=== PATIENT | male | born 1955 | race Caucasian/White ===

== ENCOUNTER 2021-06-27 05:47 | Inpatient (IN) ==
[2021-06-21 12:44] LABS: Basophils % 0.2 % (0.0-0.8); Eosinophils # 0.1 10*3/uL (0.0-0.87); Eosinophils % 0.5 % (0.00-10.9); Hematocrit 39.1 VOL% (42.0-52.0); Immature Granulocytes % 0.4 %; Immature Granulocytes Absolute 0.04 #; Lymphocytes # 1.8 10*3/uL (1.4-4.0); Lymphocytes % 19.2 % (21.2-54.2); Mean Corpuscular HGB Conc 33.2 GM/DL (32-36); Mean Platelet Volume 11.1 FL (9.6-12.0); Monocytes % 7.3 % (1.7-12.7); Neutrophils % 72.4 % (38.7-73.9); Platelet Count 170 T/CUMM (130-400); Red Blood Count 3.91 MC/CUMM (3.8-5.5); Red Cell Distribution Width 16.5 % (9.3-17.3); White Blood Count 9.2 T/CUMM (4-12)
[2021-06-21 13:03] LABS: Albumin 3.7 G/DL (3.4-5.0); Bilirubin,Total 2.1 MG/DL (0.20-1.00); Calcium 9.2 MG/DL (8.5-10.1); Total Protein 6.6 G/DL (6.4-8.2)
[2021-06-27] MEDS ORDERED: GABAPENTIN 400 MG CAPSULE ONE (05:51)
[2021-06-27] MEDS ORDERED: ACETAMINOPHEN 500 MG TABLET ONE (05:51)
[2021-06-27] MEDS ORDERED: FAMOTIDINE 20 MG TABLET ONE (05:51)
[2021-06-27] MEDS ORDERED: LACTATED RINGERS 1,000 ML IV SCH (06:00)
[2021-06-27] MEDS ORDERED: cefTRIAXone 1,000 MG in SODIUM CHLORIDE 0.9% 100 ML IV ONE (06:00)
[2021-06-27] MEDS ORDERED: SODIUM PHOSPHATE ENEMA 133 ML BOTTLE RECTAL ONE (06:08)
[2021-06-27] MEDS ORDERED: ROPIVACAINE 0.5% 30 ML VIAL ONE ×2 (06:40→10:31)
[2021-06-27] MEDS ORDERED: DEXAMETHASONE 4 MG/1 ML VIAL ONE ×2 (06:40→08:22)
[2021-06-27] MEDS: ALVIMOPAN 12 MG CAPSULE PO SCH ×2 (06:40→22:23)
[2021-06-27] MEDS ORDERED: MIDAZOLAM 2 MG/2 ML VIAL ONE (06:46)
[2021-06-27] MEDS ORDERED: fentaNYL 250 MCG/5 ML VIAL ONE (06:47)
[2021-06-27] MEDS ORDERED: FAMOTIDINE 20 MG TABLET PO ONE (07:26)
[2021-06-27] MEDS ORDERED: ACETAMINOPHEN 500 MG TABLET PO ONE (07:26)
[2021-06-27] MEDS ORDERED: GABAPENTIN 400 MG CAPSULE PO ONE (07:26)
[2021-06-27] MEDS ORDERED: PHENYLEPHRINE 10 MG/1 ML VIAL IV ONE (07:28)
[2021-06-27] MEDS ORDERED: GLYCOPYRROLATE 0.4 MG/2 ML VIAL ONE (08:22)
[2021-06-27] MEDS ORDERED: LACTATED RINGERS 1,000 ML IV ONE (08:22)
[2021-06-27] MEDS ORDERED: DESFLURANE 1 UNIT/15 MINUTE INH ONE ×3 (08:22→10:37)
[2021-06-27] MEDS ORDERED: ROCURONIUM 50 MG/5 ML VIAL IV ONE ×2 (08:22→08:36)
[2021-06-27] MEDS ORDERED: SODIUM CHLORIDE 0.9% 100 ML IV ONE (08:22)
[2021-06-27] MEDS ORDERED: LIDOCAINE 2% 5 ML VIAL ONE (08:22)
[2021-06-27] MEDS ORDERED: ONDANSETRON 4 MG/2 ML VIAL ONE (08:22)
[2021-06-27] MEDS ORDERED: propofoL 200 MG/20 ML VIAL IV ONE (08:22)
[2021-06-27 08:35] LABS: Bacteria,Urine Occasional /HPF (Few); Bilirubin,Urine Negative (Negative); Blood, Urine Small mg/dL (Negative); Calcium Oxalate Crystals,Urine Occasional /HPF (Few); Glucose,Urine (UA) Negative (Negative); Ketones,Urine Negative (Negative); Mucus,Urine Few /LPF (Occasional); Nitrite,Urine Negative (Negative); Protein,Urine 30 MG/DL; RBC,Urine 10 /HPF (0-4); Squamous Epithelial Cell,Urine Few /HPF (0-10); Urine Appearance Slightly Hazy (Clear); Urine Color Amber (Yellow); Urine Specific Gravity 1.014 (1.001-1.035)
[2021-06-27] MEDS ORDERED: SUGAMMADEX 200 MG/2 ML VIAL IV ONE (10:06)
[2021-06-27] MEDS ORDERED: HYDROmorphone 2 MG/1 ML VIAL ONE (10:25)
[2021-06-27] MEDS ORDERED: PROMETHAZINE 25 MG/1 ML VIAL IM PRN (10:40)
[2021-06-27] MEDS ORDERED: SIMETHICONE CHEW 125 MG TABLET PO PRN (10:40)
[2021-06-27] MEDS ORDERED: MAGNESIUM HYDROXIDE SUSP 30 ML UDCUP PO PRN (10:40)
[2021-06-27] MEDS ORDERED: ONDANSETRON 4 MG/2 ML VIAL IV PRN (10:40)
[2021-06-27] MEDS ORDERED: diphenhydrAMINE CAP 25 MG CAPSULE PO PRN (10:40)
[2021-06-27 11:34] LABS: Basophils % 0.1 % (0.0-0.8); Hematocrit 39.7 VOL% (42.0-52.0); Hemoglobin 12.9 GM/DL (14.0-18.0); Immature Granulocytes % 0.8 %; Immature Granulocytes Absolute 0.07 #; Lymphocytes # 0.7 10*3/uL (1.4-4.0); Lymphocytes % 7.4 % (21.2-54.2); Mean Corpuscular HGB Conc 32.5 GM/DL (32-36); Mean Corpuscular Volume 104.5 FL (87-102); Mean Platelet Volume 10.7 FL (9.6-12.0); Monocytes % 2.1 % (1.7-12.7); Neutrophils % 89.6 % (38.7-73.9); Platelet Count 115 T/CUMM (130-400); Red Cell Distribution Width 16.4 % (9.3-17.3)
[2021-06-27 12:22] LABS: Calcium 9.2 MG/DL (8.5-10.1); Potassium 4.4 MMOL/L (3.5-5.1)
[2021-06-27] MEDS ORDERED: COLCHICINE 0.6 MG CAPSULE PO PRN (12:22)
[2021-06-27 12:44] LABS: Anisocytosis 2+; Macrocytosis 1+; Platelet Estimate Adequate; Polychromasia Slight
[2021-06-27] MEDS: SODIUM CHLORIDE 0.9% 1,000 ML IV SCH ×2 (13:03→22:24)
[2021-06-27] MEDS: ACETAMINOPHEN 325 MG TABLET PO SCH ×2 (13:14→17:12)
[2021-06-27] MEDS: oxyCODONE/ACETAMINOPHEN 5-325 MG TABLET PO PRN (16:06)
[2021-06-27] MEDS ORDERED: hydrALAZINE 20 MG/1 ML VIAL IV PRN (16:20)
[2021-06-27] MEDS ORDERED: MELATONIN 3 MG TABLET PO PRN (16:21)
[2021-06-27] MEDS: HYDROmorphone 2 MG/1 ML VIAL IV PRN (18:06)
[2021-06-27] MEDS: TAMSULOSIN 0.4 MG CAPSULE PO SCH (22:23)
[2021-06-27] MEDS: FAMOTIDINE 20 MG TABLET PO SCH (22:23)
[2021-06-27] MEDS: DOCUSATE SODIUM 100 MG CAPSULE PO SCH (22:24)
[2021-06-28] MEDS: ACETAMINOPHEN 325 MG TABLET PO SCH ×5 (00:39→23:19)
[2021-06-28] MEDS: SODIUM CHLORIDE 0.9% 1,000 ML IV SCH (04:31)
[2021-06-28 05:49] LABS: Hematocrit 35.4 VOL% (42.0-52.0); Hemoglobin 11.9 GM/DL (14.0-18.0); Immature Granulocytes % 0.6 %; Immature Granulocytes Absolute 0.07 #; Lymphocytes # 0.6 10*3/uL (1.4-4.0); Lymphocytes % 5.3 % (21.2-54.2); Mean Corpuscular HGB Conc 33.6 GM/DL (32-36); Mean Corpuscular Volume 102.6 FL (87-102); Mean Platelet Volume 10.8 FL (9.6-12.0); Monocytes % 3.6 % (1.7-12.7); Neutrophils % 90.5 % (38.7-73.9); Platelet Count 133 T/CUMM (130-400); Red Blood Count 3.45 MC/CUMM (3.8-5.5); Red Cell Distribution Width 16.1 % (9.3-17.3); White Blood Count 10.9 T/CUMM (4-12)
[2021-06-28 06:01] LABS: Calcium 8.9 MG/DL (8.5-10.1); Osmolality,Calculated 274.8 MOS/KG (273-304); Potassium 4.7 MMOL/L (3.5-5.1)
[2021-06-28] MEDS: HYDROmorphone 2 MG/1 ML VIAL IV PRN ×3 (06:38→20:51)
[2021-06-28] MEDS: METOPROLOL SUCCINATE XL 100 MG TABLET PO SCH (09:37)
[2021-06-28] MEDS: TAMSULOSIN 0.4 MG CAPSULE PO SCH ×2 (09:37→20:51)
[2021-06-28] MEDS: allopurinoL 300 MG TABLET PO SCH (09:37)
[2021-06-28] MEDS: DOCUSATE SODIUM 100 MG CAPSULE PO SCH ×2 (09:37→20:51)
[2021-06-28] MEDS: ALVIMOPAN 12 MG CAPSULE PO SCH ×2 (09:37→20:51)
[2021-06-28] MEDS: FAMOTIDINE 20 MG TABLET PO SCH ×2 (09:37→20:51)
[2021-06-29 05:35] LABS: Hematocrit 34.4 VOL% (42.0-52.0); Hemoglobin 11.4 GM/DL (14.0-18.0); Immature Granulocytes % 0.7 %; Immature Granulocytes Absolute 0.08 #; Lymphocytes # 1.1 10*3/uL (1.4-4.0); Lymphocytes % 9.3 % (21.2-54.2); Mean Corpuscular HGB Conc 33.1 GM/DL (32-36); Mean Corpuscular Volume 103.9 FL (87-102); Mean Platelet Volume 11.2 FL (9.6-12.0); Monocytes % 6.7 % (1.7-12.7); Neutrophils % 83.3 % (38.7-73.9); Platelet Count 136 T/CUMM (130-400); Red Blood Count 3.31 MC/CUMM (3.8-5.5); Red Cell Distribution Width 16.2 % (9.3-17.3); White Blood Count 11.6 T/CUMM (4-12)
[2021-06-29 05:51] LABS: Calcium 9.2 MG/DL (8.5-10.1); Osmolality,Calculated 271.8 MOS/KG (273-304); Potassium 4.7 MMOL/L (3.5-5.1)
[2021-06-29] MEDS: ACETAMINOPHEN 325 MG TABLET PO SCH ×4 (05:59→21:05)
[2021-06-29] MEDS ORDERED: BISACODYL 10 MG SUPP RECTAL ONE (07:33)
[2021-06-29] MEDS: FAMOTIDINE 20 MG TABLET PO SCH ×2 (09:57→21:06)
[2021-06-29] MEDS: TAMSULOSIN 0.4 MG CAPSULE PO SCH ×2 (09:57→21:06)
[2021-06-29] MEDS: oxyCODONE/ACETAMINOPHEN 5-325 MG TABLET PO PRN ×2 (09:57→17:20)
[2021-06-29] MEDS: METOPROLOL SUCCINATE XL 100 MG TABLET PO SCH (09:57)
[2021-06-29] MEDS: allopurinoL 300 MG TABLET PO SCH (09:57)
[2021-06-29] MEDS: ALVIMOPAN 12 MG CAPSULE PO SCH ×2 (09:58→21:06)
[2021-06-29] MEDS: DOCUSATE SODIUM 100 MG CAPSULE PO SCH ×2 (09:58→21:06)
[2021-06-29] MEDS: HYDROmorphone 2 MG/1 ML VIAL IV PRN ×2 (11:48→21:05)
[2021-06-30] MEDS: ACETAMINOPHEN 325 MG TABLET PO SCH (05:07)
[2021-06-30 05:35] LABS: Calcium 8.7 MG/DL (8.5-10.1); Osmolality,Calculated 270.8 MOS/KG (273-304); Potassium 3.9 MMOL/L (3.5-5.1)
[2021-06-30 05:47] LABS: Basophils % 0.1 % (0.0-0.8); Eosinophils % 0.6 % (0.00-10.9); Hematocrit 32.6 VOL% (42.0-52.0); Hemoglobin 10.8 GM/DL (14.0-18.0); Immature Granulocytes % 0.6 %; Immature Granulocytes Absolute 0.04 #; Lymphocytes # 1.5 10*3/uL (1.4-4.0); Lymphocytes % 21.4 % (21.2-54.2); Mean Corpuscular HGB Conc 33.1 GM/DL (32-36); Mean Corpuscular Volume 102.8 FL (87-102); Mean Platelet Volume 10.9 FL (9.6-12.0); Monocytes % 7.3 % (1.7-12.7); Red Blood Count 3.17 MC/CUMM (3.8-5.5)
[2021-06-30 06:01] LABS: Platelet Count 103 T/CUMM (130-400)
[2021-06-30 06:08] LABS: Anisocytosis 2+; Macrocytosis 1+; Platelet Estimate Adequate
[2021-06-30 07:45] VITALS: BP 102/64
[2021-06-30] MEDS: TAMSULOSIN 0.4 MG CAPSULE PO SCH (08:16)
[2021-06-30] MEDS: METOPROLOL SUCCINATE XL 100 MG TABLET PO SCH (08:16)
[2021-06-30] MEDS: DOCUSATE SODIUM 100 MG CAPSULE PO SCH (08:17)
[2021-06-30] MEDS: ALVIMOPAN 12 MG CAPSULE PO SCH (08:17)
[2021-06-30] MEDS: FAMOTIDINE 20 MG TABLET PO SCH (08:17)
[2021-06-30] MEDS: allopurinoL 300 MG TABLET PO SCH (08:17)
[2021-06-30] MEDS: oxyCODONE/ACETAMINOPHEN 5-325 MG TABLET PO PRN (08:21)
[2021-06-30] MEDS ORDERED: INFLUENZA VIRUS VACCINE 0.5 ML SYRINGE IM ONE (10:53)
== END 2021-06-30 11:00 | disposition home or self-care (01) | DRG 657 ==
LOC: N.OR 05:47 → N.SDSINP 05:49 → N.2W 12:18
PROVIDERS: ADMIT Surgery; ATTEND Surgery

== ENCOUNTER 2021-08-19 08:30 | Inpatient (IN) ==
[2021-08-19 12:43] LABS: Basophils % 0.2 % (0.0-0.8); Eosinophils # 0.1 10*3/uL (0.0-0.87); Eosinophils % 0.6 % (0.00-10.9); Hematocrit 44.1 VOL% (42.0-52.0); Hemoglobin 14.9 GM/DL (14.0-18.0); Immature Granulocytes % 0.9 %; Immature Granulocytes Absolute 0.07 #; Lymphocytes # 1.3 10*3/uL (1.4-4.0); Lymphocytes % 15.7 % (21.2-54.2); Mean Corpuscular HGB Conc 33.8 GM/DL (32-36); Mean Corpuscular Volume 101.1 FL (87-102); Mean Platelet Volume 11.8 FL (9.6-12.0); Monocytes % 7.7 % (1.7-12.7); Neutrophils % 74.9 % (38.7-73.9); Platelet Count 101 T/CUMM (130-400); Red Blood Count 4.36 MC/CUMM (3.8-5.5); Red Cell Distribution Width 13.9 % (9.3-17.3)
[2021-08-19 13:03] LABS: Albumin 3.3 G/DL (3.4-5.0); Bilirubin,Total 1.2 MG/DL (0.20-1.00); Calcium 10.1 MG/DL (8.5-10.1); Osmolality,Calculated 267.2 MOS/KG (273-304); Potassium 3.5 MMOL/L (3.5-5.1); Total Protein 6.9 G/DL (6.4-8.2)
[2021-08-19] MEDS ORDERED: SODIUM CHLORIDE 0.9% 500 ML IV STA (16:38)
[2021-08-19] MEDS ORDERED: ONDANSETRON 4 MG/2 ML VIAL IV STA (16:39)
[2021-08-19 18:11] LABS: Bacteria,Urine Moderate /HPF (Few); Bilirubin,Urine Negative (Negative); Blood, Urine Negative (Negative); Glucose,Urine (UA) Negative (Negative); Ketones,Urine 5 mg/dL (Negative); Mucus,Urine Many /LPF (Occasional); Nitrite,Urine Negative (Negative); Protein,Urine 100 MG/DL; Squamous Epithelial Cell,Urine Occasional /HPF (0-10); Urine Appearance CLOUDY (Clear); Urine Color Amber (Yellow); Urine Specific Gravity 1.027 (1.001-1.035)
[2021-08-19 18:12] LABS: INR 1.1; PT Patient Result 12.7 SECS (10.5-12.0); Partial Thromboplastin Time 27.9 SECS (23.8-32.1)
[2021-08-19] MEDS ORDERED: cefTRIAXone 1,000 MG in SODIUM CHLORIDE 0.9% 100 ML IV STA (18:25)
[2021-08-19] MEDS ORDERED: CIPROFLOXACIN INJ 400 MG/200 ML PREMIX IV STA (18:28)
[2021-08-20] MEDS ORDERED: ACETAMINOPHEN 325 MG TABLET PO PRN (00:33)
[2021-08-20] MEDS: LACTATED RINGERS 1,000 ML IV SCH ×2 (01:05→10:41)
[2021-08-20 04:41] LABS: Basophils % 0.2 % (0.0-0.8); Eosinophils % 0.8 % (0.00-10.9); Hematocrit 35.4 VOL% (42.0-52.0); Immature Granulocytes % 0.4 %; Immature Granulocytes Absolute 0.02 #; Lymphocytes # 1.2 10*3/uL (1.4-4.0); Lymphocytes % 24.5 % (21.2-54.2); Mean Corpuscular HGB Conc 33.9 GM/DL (32-36); Mean Corpuscular Volume 100.6 FL (87-102); Mean Platelet Volume 11.2 FL (9.6-12.0); Monocytes % 7.8 % (1.7-12.7); Neutrophils % 66.3 % (38.7-73.9); Platelet Count 64 T/CUMM (130-400); Red Blood Count 3.52 MC/CUMM (3.8-5.5); Red Cell Distribution Width 13.9 % (9.3-17.3)
[2021-08-20 04:56] LABS: Albumin 2.6 G/DL (3.4-5.0); Bilirubin,Total 0.9 MG/DL (0.20-1.00); Osmolality,Calculated 270.8 MOS/KG (273-304); Potassium 3.1 MMOL/L (3.5-5.1); Total Protein 5.5 G/DL (6.4-8.2)
[2021-08-20 07:38] LABS: Platelet Estimate Decreased
[2021-08-20] MEDS: PANTOPRAZOLE 40 MG TABLET PO SCH (08:41)
[2021-08-20] MEDS: CIPROFLOXACIN INJ 400 MG/200 ML PREMIX IV SCH (08:41)
[2021-08-20] MEDS ORDERED: PNEUMOCOCCAL VACCINE (13 VALENT) 0.5 ML SYRINGE IM ONE (21:13)
[2021-08-21] MEDS: CIPROFLOXACIN INJ 400 MG/200 ML PREMIX IV SCH ×2 (01:12→14:49)
[2021-08-21] MEDS: LACTATED RINGERS 1,000 ML IV SCH ×4 (03:20→17:24)
[2021-08-21 04:53] LABS: Basophils % 0.3 % (0.0-0.8); Eosinophils % 0.8 % (0.00-10.9); Hematocrit 34.6 VOL% (42.0-52.0); Hemoglobin 11.8 GM/DL (14.0-18.0); Immature Granulocytes % 0.8 %; Immature Granulocytes Absolute 0.03 #; Lymphocytes % 26.3 % (21.2-54.2); Mean Corpuscular HGB Conc 34.1 GM/DL (32-36); Mean Platelet Volume 10.5 FL (9.6-12.0); Monocytes % 8.1 % (1.7-12.7); Neutrophils % 63.7 % (38.7-73.9); Platelet Count 52 T/CUMM (130-400); Red Blood Count 3.46 MC/CUMM (3.8-5.5)
[2021-08-21 05:12] LABS: Platelet Estimate Decreased
[2021-08-21 05:19] LABS: Albumin 2.4 G/DL (3.4-5.0); Bilirubin,Total 1.5 MG/DL (0.20-1.00); Calcium 8.6 MG/DL (8.5-10.1); Osmolality,Calculated 273.5 MOS/KG (273-304); Potassium 3.1 MMOL/L (3.5-5.1); Total Protein 5.3 G/DL (6.4-8.2)
[2021-08-21] MEDS ORDERED: INDOCYANINE GREEN 25 MG VIAL IV ONE ×2 (06:00→08:30)
[2021-08-21] MEDS: POTASSIUM CHLORIDE RIDER 10 MEQ/100 ML PREMIX IV SCH ×2 (08:07→11:45)
[2021-08-21] MEDS ORDERED: propofoL 200 MG/20 ML VIAL IV ONE (10:28)
[2021-08-21] MEDS ORDERED: ETOMIDATE 40 MG/20 ML VIAL IV ONE (10:28)
[2021-08-21] MEDS ORDERED: SEVOFLURANE 1 UNIT/15 MINUTE INH ONE ×2 (10:28→12:30)
[2021-08-21] MEDS ORDERED: ROCURONIUM 50 MG/5 ML VIAL IV ONE (10:28)
[2021-08-21] MEDS ORDERED: LIDOCAINE 2% 5 ML VIAL ONE (10:28)
[2021-08-21] MEDS ORDERED: fentaNYL 100 MCG/2 ML VIAL ONE (10:28)
[2021-08-21] MEDS ORDERED: LIDOCAINE 1%/EPI INJ 20 ML VIAL ONE (10:35)
[2021-08-21] MEDS ORDERED: BUPIVACAINE MPF 0.25% 30 ML VIAL ONE (10:35)
[2021-08-21] MEDS ORDERED: TISSUE ADHESIVE 1 EACH APPLICATOR TOP ONE (10:35)
[2021-08-21] MEDS: PANTOPRAZOLE 40 MG TABLET PO SCH ×2 (11:45→21:20)
[2021-08-21] MEDS ORDERED: SODIUM CHLORIDE 0.9% 100 ML IV ONE (11:51)
[2021-08-21] MEDS ORDERED: PHENYLEPHRINE 10 MG/1 ML VIAL IV ONE (11:51)
[2021-08-21] MEDS ORDERED: LACTATED RINGERS 1,000 ML IV ONE (11:51)
[2021-08-21] MEDS ORDERED: HEPARIN 5,000 UNIT/1 ML VIAL ONE (11:54)
[2021-08-21] MEDS ORDERED: GLYCOPYRROLATE 0.4 MG/2 ML VIAL ONE (12:27)
[2021-08-21] MEDS ORDERED: NEOSTIGMINE 10 MG/10 ML VIAL ONE (12:27)
[2021-08-21] MEDS: ENOXAPARIN 40 MG/0.4 ML SYRINGE SUBCUT SCH (14:55)
[2021-08-21] MEDS ORDERED: traMADol 50 MG TABLET PO PRN (15:47)
[2021-08-21] MEDS ORDERED: DIAZEPAM 5 MG TABLET PO PRN (15:56)
[2021-08-21] MEDS ORDERED: COLCHICINE 0.6 MG CAPSULE PO PRN (16:01)
[2021-08-21] MEDS: ONDANSETRON 4 MG/2 ML VIAL IV PRN (18:25)
[2021-08-21] MEDS: HYDROmorphone 2 MG/1 ML VIAL IV PRN (20:15)
[2021-08-21] MEDS: TAMSULOSIN 0.4 MG CAPSULE PO SCH (21:20)
[2021-08-22] MEDS: LACTATED RINGERS 1,000 ML IV SCH ×3 (01:09→15:44)
[2021-08-22] MEDS: CIPROFLOXACIN INJ 400 MG/200 ML PREMIX IV SCH ×2 (01:10→14:27)
[2021-08-22] MEDS: ONDANSETRON 4 MG/2 ML VIAL IV PRN ×3 (02:11→14:27)
[2021-08-22 07:03] LABS: Hematocrit 35.2 VOL% (42.0-52.0); Hemoglobin 11.8 GM/DL (14.0-18.0); Immature Granulocytes Absolute 0.06 #; Lymphocytes # 0.5 10*3/uL (1.4-4.0); Lymphocytes % 7.8 % (21.2-54.2); Mean Corpuscular HGB Conc 33.5 GM/DL (32-36); Mean Corpuscular Volume 99.7 FL (87-102); Mean Platelet Volume 11.6 FL (9.6-12.0); Monocytes % 4.2 % (1.7-12.7); Platelet Count 63 T/CUMM (130-400); Red Blood Count 3.53 MC/CUMM (3.8-5.5); Red Cell Distribution Width 14.1 % (9.3-17.3); White Blood Count 5.8 T/CUMM (4-12)
[2021-08-22 07:23] LABS: Platelet Estimate Decreased
[2021-08-22 07:32] LABS: Albumin 2.3 G/DL (3.4-5.0); Bilirubin,Total 0.9 MG/DL (0.20-1.00); Calcium 8.5 MG/DL (8.5-10.1); Osmolality,Calculated 274.5 MOS/KG (273-304); Potassium 3.8 MMOL/L (3.5-5.1); Total Protein 5.2 G/DL (6.4-8.2)
[2021-08-22] MEDS: ASPIRIN CHEW 81 MG TABLET PO SCH (09:04)
[2021-08-22] MEDS: CHOLECALCIFEROL 5,000 UNIT TABLET PO SCH (09:05)
[2021-08-22] MEDS: PANTOPRAZOLE 40 MG TABLET PO SCH ×2 (09:05→20:49)
[2021-08-22] MEDS: TAMSULOSIN 0.4 MG CAPSULE PO SCH ×2 (09:05→20:49)
[2021-08-22] MEDS: METOPROLOL SUCCINATE XL 100 MG TABLET PO SCH (09:05)
[2021-08-22] MEDS: HYDROmorphone 2 MG/1 ML VIAL IV PRN (09:35)
[2021-08-22] MEDS: [UNRECOGNIZED DRUG - OTHER] PO SCH (09:40)
[2021-08-22] MEDS: VIT C E ZN COPPR LUTEIN ZEAXAN PO SCH (09:40)
[2021-08-22] MEDS: ENOXAPARIN 40 MG/0.4 ML SYRINGE SUBCUT SCH (14:26)
[2021-08-22] MEDS: PROMETHAZINE 25 MG/1 ML VIAL IM PRN (19:47)
[2021-08-23] MEDS: CIPROFLOXACIN INJ 400 MG/200 ML PREMIX IV SCH ×2 (00:29→12:41)
[2021-08-23] MEDS: LACTATED RINGERS 1,000 ML IV SCH ×5 (00:40→22:29)
[2021-08-23] MEDS: PROMETHAZINE 25 MG/1 ML VIAL IM PRN (01:12)
[2021-08-23] MEDS: ASPIRIN CHEW 81 MG TABLET PO SCH (09:07)
[2021-08-23] MEDS: CHOLECALCIFEROL 5,000 UNIT TABLET PO SCH (09:07)
[2021-08-23] MEDS: TAMSULOSIN 0.4 MG CAPSULE PO SCH ×2 (09:07→20:34)
[2021-08-23] MEDS: PANTOPRAZOLE 40 MG TABLET PO SCH ×2 (09:07→20:33)
[2021-08-23] MEDS: METOPROLOL SUCCINATE XL 100 MG TABLET PO SCH (09:07)
[2021-08-23] MEDS: [UNRECOGNIZED DRUG - OTHER] PO SCH (09:36)
[2021-08-23] MEDS: VIT C E ZN COPPR LUTEIN ZEAXAN PO SCH (09:36)
[2021-08-23 12:13] LABS: Basophils % 0.3 % (0.0-0.8); Eosinophils % 0.3 % (0.00-10.9); Hematocrit 32.9 VOL% (42.0-52.0); Hemoglobin 10.9 GM/DL (14.0-18.0); Immature Granulocytes % 0.8 %; Immature Granulocytes Absolute 0.03 #; Lymphocytes # 0.9 10*3/uL (1.4-4.0); Lymphocytes % 22.1 % (21.2-54.2); Mean Corpuscular HGB Conc 33.1 GM/DL (32-36); Mean Corpuscular Volume 101.9 FL (87-102); Mean Platelet Volume 11.5 FL (9.6-12.0); Monocytes % 5.4 % (1.7-12.7); Neutrophils % 71.1 % (38.7-73.9); Platelet Count 54 T/CUMM (130-400); Red Blood Count 3.23 MC/CUMM (3.8-5.5); Red Cell Distribution Width 14.3 % (9.3-17.3); White Blood Count 3.9 T/CUMM (4-12)
[2021-08-23 12:36] LABS: Anisocytosis Slight; Macrocytosis Slight; Platelet Estimate Decreased
[2021-08-23 12:37] LABS: Albumin 2.2 G/DL (3.4-5.0); Bilirubin,Total 0.6 MG/DL (0.20-1.00); Calcium 8.6 MG/DL (8.5-10.1); Osmolality,Calculated 273.5 MOS/KG (273-304); Potassium 3.4 MMOL/L (3.5-5.1); Total Protein 4.8 G/DL (6.4-8.2)
[2021-08-23] MEDS: ENOXAPARIN 40 MG/0.4 ML SYRINGE SUBCUT SCH (12:42)
[2021-08-23] MEDS: HYDROmorphone 2 MG/1 ML VIAL IV PRN (14:27)
[2021-08-24] MEDS: LACTATED RINGERS 1,000 ML IV SCH ×2 (00:28→10:50)
[2021-08-24] MEDS: CIPROFLOXACIN INJ 400 MG/200 ML PREMIX IV SCH ×2 (02:13→14:54)
[2021-08-24 05:45] LABS: Basophils % 0.3 % (0.0-0.8); Eosinophils % 0.3 % (0.00-10.9); Hematocrit 32.3 VOL% (42.0-52.0); Hemoglobin 10.9 GM/DL (14.0-18.0); Immature Granulocytes % 1.3 %; Immature Granulocytes Absolute 0.04 #; Lymphocytes # 0.9 10*3/uL (1.4-4.0); Lymphocytes % 29.5 % (21.2-54.2); Mean Corpuscular HGB Conc 33.7 GM/DL (32-36); Mean Corpuscular Volume 102.5 FL (87-102); Monocytes % 6.7 % (1.7-12.7); Neutrophils % 61.9 % (38.7-73.9); Platelet Count 43 T/CUMM (130-400); Red Blood Count 3.15 MC/CUMM (3.8-5.5); Red Cell Distribution Width 14.4 % (9.3-17.3); White Blood Count 3.2 T/CUMM (4-12)
[2021-08-24 06:04] LABS: Hypochromia 1+; Microcytosis 1+; Platelet Estimate Decreased
[2021-08-24 06:07] LABS: Bilirubin,Total 0.6 MG/DL (0.20-1.00); Calcium 8.4 MG/DL (8.5-10.1); Osmolality,Calculated 277.3 MOS/KG (273-304); Potassium 3.4 MMOL/L (3.5-5.1); Total Protein 4.5 G/DL (6.4-8.2)
[2021-08-24] MEDS: ASPIRIN CHEW 81 MG TABLET PO SCH (09:27)
[2021-08-24] MEDS: CHOLECALCIFEROL 5,000 UNIT TABLET PO SCH (09:27)
[2021-08-24] MEDS: PANTOPRAZOLE 40 MG TABLET PO SCH (09:27)
[2021-08-24] MEDS: METOPROLOL SUCCINATE XL 100 MG TABLET PO SCH (09:27)
[2021-08-24] MEDS: TAMSULOSIN 0.4 MG CAPSULE PO SCH (09:27)
[2021-08-24] MEDS: VIT C E ZN COPPR LUTEIN ZEAXAN PO SCH (09:28)
[2021-08-24] MEDS: [UNRECOGNIZED DRUG - OTHER] PO SCH (09:28)
[2021-08-24 12:02] VITALS: BP 123/67
[2021-08-24] MEDS: ENOXAPARIN 40 MG/0.4 ML SYRINGE SUBCUT SCH (14:54)
== END 2021-08-24 14:57 | disposition home or self-care (01) | DRG 418 ==
LOC: N.ED 08:30 → N.EDINP 18:24 → N.TELES 08-20 19:27
PROVIDERS: ADMIT Surgery; ATTEND Surgery

== ENCOUNTER 2021-09-04 10:43 | Inpatient (IN) ==
[2021-09-04] MEDS ORDERED: LACTATED RINGERS 1,000 ML IV ONE (11:14)
[2021-09-04 11:44] LABS: Basophils # 0.1 10*3/uL (0.0-0.2); Basophils % 0.7 % (0.0-0.8); Eosinophils % 0.2 % (0.00-10.9); Hematocrit 40.6 VOL% (42.0-52.0); Hemoglobin 13.7 GM/DL (14.0-18.0); Immature Granulocytes % 3.8 %; Immature Granulocytes Absolute 0.48 #; Lymphocytes # 1.5 10*3/uL (1.4-4.0); Lymphocytes % 11.7 % (21.2-54.2); Mean Corpuscular HGB Conc 33.7 GM/DL (32-36); Mean Corpuscular Volume 99.3 FL (87-102); Mean Platelet Volume 12.6 FL (9.6-12.0); Monocytes % 6.9 % (1.7-12.7); Neutrophils % 76.7 % (38.7-73.9); Platelet Count 75 T/CUMM (130-400); Red Blood Count 4.09 MC/CUMM (3.8-5.5); Red Cell Distribution Width 14.4 % (9.3-17.3); White Blood Count 12.7 T/CUMM (4-12)
[2021-09-04 12:07] LABS: Alanine Aminotransferase 31 U/L (16-61); Albumin 2.7 G/DL (3.4-5.0); Alkaline Phosphatase 82 U/L (45-117); Aspartate Amino Transferase 27 U/L (0-37); Blood Urea Nitrogen 11 MG/DL (7-18); Calcium 8.9 MG/DL (8.5-10.1); Carbon Dioxide 25 MMOL/L (21-32); Estimated Glom Filtration Rate 87 ML/MIN; Glucose 113 MG/DL (74-106); Potassium 4.3 MMOL/L (3.5-5.1); Sodium 136 MMOL/L (136-145); Total Protein 6.2 G/DL (6.4-8.2)
[2021-09-04] MEDS ORDERED: LACTATED RINGERS 1,400 ML IV ONE (12:18)
[2021-09-04] MEDS ORDERED: PIPERACILLIN/TAZOBACTAM 3,375 MG in SODIUM CHLORIDE 0.9% 100 ML IV STA ×2 (13:26→13:43)
[2021-09-04] MEDS ORDERED: ACETAMINOPHEN 325 MG TABLET PO PRN (15:10)
[2021-09-04] MEDS ORDERED: ONDANSETRON 4 MG/2 ML VIAL IV PRN (15:10)
[2021-09-04] MEDS ORDERED: GLUCAGON 1 MG VIAL IM PRN (15:10)
[2021-09-04] MEDS ORDERED: DEXTROSE 10% 250 ML BAG IV PRN (15:15)
[2021-09-04] MEDS ORDERED: PANTOPRAZOLE 40 MG TABLET PO SCH (15:30)
[2021-09-04] MEDS: ENOXAPARIN 40 MG/0.4 ML SYRINGE SUBCUT SCH (15:44)
[2021-09-04] MEDS: SODIUM CHLORIDE 0.9% 1,000 ML IV SCH ×2 (15:45→22:00)
[2021-09-04] MEDS ORDERED: SODIUM CHLORIDE 0.9% 500 ML IV ONE (15:50)
[2021-09-04] MEDS ORDERED: DIAZEPAM 5 MG TABLET PO PRN (16:03)
[2021-09-04] MEDS ORDERED: COLCHICINE 0.6 MG CAPSULE PO PRN (16:05)
[2021-09-04 16:26] LABS: INR 1.1; PT Patient Result 12.5 SECS (10.5-12.0)
[2021-09-04] MEDS ORDERED: LIDOCAINE 2% TOP JELLY 20 ML VIAL INTRAURETH ONE (16:58)
[2021-09-04 20:27] LABS: Hematocrit 31.4 VOL% (42.0-52.0); Hemoglobin 10.7 GM/DL (14.0-18.0)
[2021-09-04 21:17] LABS: Bilirubin,Urine Negative (Negative); Blood, Urine Negative (Negative); Glucose,Urine (UA) Negative (Negative); Ketones,Urine Negative (Negative); Nitrite,Urine Negative (Negative); Protein,Urine Negative; RBC,Urine 1 /HPF (0-4); Urine Appearance CLEAR (Clear); Urine Color Yellow (Yellow); Urine Specific Gravity 1.039 (1.001-1.035); Urine Urobilinogen < 2.0 EU/DL (<2.0)
[2021-09-04] MEDS: TAMSULOSIN 0.4 MG CAPSULE PO SCH (22:00)
[2021-09-04] MEDS: PANTOPRAZOLE 40 MG TABLET PO SCH (22:00)
[2021-09-05] MEDS: PIPERACILLIN/TAZOBACTAM 3,375 MG in SODIUM CHLORIDE 0.9% 100 ML IV SCH ×3 (00:46→16:38)
[2021-09-05 02:37] LABS: Hematocrit 32.3 VOL% (42.0-52.0)
[2021-09-05 05:33] LABS: INR 1.2
[2021-09-05 05:41] LABS: Basophils % 0.6 % (0.0-0.8); Eosinophils % 0.2 % (0.00-10.9); Hematocrit 31.7 VOL% (42.0-52.0); Hemoglobin 10.9 GM/DL (14.0-18.0); Immature Granulocytes % 5.8 %; Immature Granulocytes Absolute 0.29 #; Lymphocytes # 0.8 10*3/uL (1.4-4.0); Lymphocytes % 16.1 % (21.2-54.2); Mean Corpuscular HGB Conc 34.4 GM/DL (32-36); Mean Corpuscular Volume 97.8 FL (87-102); Mean Platelet Volume 12.1 FL (9.6-12.0); Monocytes % 5.6 % (1.7-12.7); Neutrophils % 71.7 % (38.7-73.9); Red Blood Count 3.24 MC/CUMM (3.8-5.5); Red Cell Distribution Width 14.1 % (9.3-17.3)
[2021-09-05 06:03] LABS: Osmolality,Calculated 272.7 MOS/KG (273-304); Potassium 3.1 MMOL/L (3.5-5.1); Total Protein 4.9 G/DL (6.4-8.2)
[2021-09-05 06:14] LABS: Platelet Count 37 T/CUMM (130-400)
[2021-09-05 06:20] LABS: Band Neutrophils 1 % (0-10); Eosinophils 1 % (0-10); Hypochromia Slight; Lymphocytes 12 % (20-55); Microcytosis Slight; Platelet Estimate Decreased; Segmented Neutrophils 85 % (50-85); Total Cells Counted 100
[2021-09-05] MEDS ORDERED: POTASSIUM CHLORIDE 20 MEQ TABLET PO ONE (09:59)
[2021-09-05] MEDS: CHOLECALCIFEROL 5,000 UNIT TABLET PO SCH (09:59)
[2021-09-05] MEDS: allopurinoL 300 MG TABLET PO SCH (09:59)
[2021-09-05] MEDS: PANTOPRAZOLE 40 MG TABLET PO SCH ×2 (10:00→21:48)
[2021-09-05] MEDS: METOPROLOL SUCCINATE XL 100 MG TABLET PO SCH (10:00)
[2021-09-05] MEDS: TAMSULOSIN 0.4 MG CAPSULE PO SCH ×2 (10:00→21:48)
[2021-09-05] MEDS: ASPIRIN EC 81 MG TABLET PO SCH (10:07)
[2021-09-05 14:07] LABS: Folate 4.43 NG/ML (5.38-24.0); Vitamin B12 1021 PG/ML (211-911)
[2021-09-05 16:22] LABS: Hematocrit 31.7 VOL% (42.0-52.0); Hemoglobin 10.8 GM/DL (14.0-18.0)
[2021-09-05] MEDS: ENOXAPARIN 40 MG/0.4 ML SYRINGE SUBCUT SCH (16:36)
[2021-09-05] MEDS: OLANZapine 2.5 MG TABLET PO SCH (21:48)
[2021-09-05 23:43] LABS: Hematocrit 29.7 VOL% (42.0-52.0); Hemoglobin 10.3 GM/DL (14.0-18.0)
[2021-09-06] MEDS: PIPERACILLIN/TAZOBACTAM 3,375 MG in SODIUM CHLORIDE 0.9% 100 ML IV SCH (03:08)
[2021-09-06] MEDS: TAMSULOSIN 0.4 MG CAPSULE PO SCH ×2 (08:15→21:47)
[2021-09-06] MEDS: allopurinoL 300 MG TABLET PO SCH (08:15)
[2021-09-06] MEDS: METOPROLOL SUCCINATE XL 100 MG TABLET PO SCH (08:16)
[2021-09-06] MEDS: ASPIRIN EC 81 MG TABLET PO SCH (08:16)
[2021-09-06] MEDS: SODIUM CHLORIDE 0.9% 1,000 ML IV SCH ×3 (09:29→16:36)
[2021-09-06] MEDS: CHOLECALCIFEROL 5,000 UNIT TABLET PO SCH (09:29)
[2021-09-06] MEDS: PANTOPRAZOLE 40 MG TABLET PO SCH ×2 (11:18→21:47)
[2021-09-06] MEDS: cefTRIAXone 1,000 MG in SODIUM CHLORIDE 0.9% 100 ML IV SCH (11:19)
[2021-09-06] MEDS: DESITIN 4OZ/NYSTATIN 15 GRAM MIXTURE PASTE TOP SCH ×2 (16:36→21:47)
[2021-09-06] MEDS: MIRTAZAPINE 15 MG TABLET PO SCH (21:47)
[2021-09-06] MEDS: OLANZapine 2.5 MG TABLET PO SCH (21:47)
[2021-09-06] MEDS: FOLIC ACID 1 MG TABLET PO SCH (21:47)
[2021-09-07] MEDS: SODIUM CHLORIDE 0.9% 1,000 ML IV SCH ×3 (01:00→16:20)
[2021-09-07 05:44] LABS: Basophils % 0.5 % (0.0-0.8); Eosinophils % 0.8 % (0.00-10.9); Hematocrit 31.2 VOL% (42.0-52.0); Hemoglobin 10.6 GM/DL (14.0-18.0); Immature Granulocytes % 6.2 %; Immature Granulocytes Absolute 0.24 #; Lymphocytes % 25.4 % (21.2-54.2); Mean Platelet Volume 12.3 FL (9.6-12.0); Neutrophils % 60.1 % (38.7-73.9); Red Blood Count 3.12 MC/CUMM (3.8-5.5); Red Cell Distribution Width 14.6 % (9.3-17.3); White Blood Count 3.9 T/CUMM (4-12)
[2021-09-07 05:49] LABS: Platelet Count 32 T/CUMM (130-400)
[2021-09-07 06:16] LABS: Band Neutrophils 1 % (0-10); Eosinophils 3 % (0-10); Hypochromia Slight; Lymphocytes 15 % (20-55); Platelet Estimate Decreased; Segmented Neutrophils 77 % (50-85)
[2021-09-07 06:17] LABS: Total Cells Counted 100
[2021-09-07 06:19] LABS: Albumin 1.9 G/DL (3.4-5.0); Bilirubin,Total 0.9 MG/DL (0.20-1.00); Calcium 7.9 MG/DL (8.5-10.1); Potassium 3.5 MMOL/L (3.5-5.1); Total Protein 4.7 G/DL (6.4-8.2)
[2021-09-07 06:55] LABS: AFP Tumor 4.8 NG/ML (0-8); Hepatitis B Core IgM Quant 0.22 Index; Hepatitis B Surface Ag Quant < 0.10 Index; Hepatitis B Surface Ag Result Non-Reactive (NonReactive); Hepatitis C Virus Ab Quant < 0.02 Index; Hepatitis C Virus Ab Result Non-Reactive (NonReactive)
[2021-09-07] MEDS: allopurinoL 300 MG TABLET PO SCH (08:45)
[2021-09-07] MEDS: TAMSULOSIN 0.4 MG CAPSULE PO SCH ×2 (08:45→22:30)
[2021-09-07] MEDS: PANTOPRAZOLE 40 MG TABLET PO SCH ×2 (08:45→22:30)
[2021-09-07] MEDS: CHOLECALCIFEROL 5,000 UNIT TABLET PO SCH (08:45)
[2021-09-07] MEDS: METOPROLOL SUCCINATE XL 100 MG TABLET PO SCH (08:45)
[2021-09-07] MEDS: METOCLOPRAMIDE 10 MG/2 ML VIAL IV SCH (14:19)
[2021-09-07] MEDS: cefTRIAXone 1,000 MG in SODIUM CHLORIDE 0.9% 100 ML IV SCH (14:24)
[2021-09-07] MEDS: DESITIN 4OZ/NYSTATIN 15 GRAM MIXTURE PASTE TOP SCH ×2 (14:40→22:32)
[2021-09-07] MEDS: HYDROCORTISONE 100 MG VIAL IV SCH (18:17)
[2021-09-07] MEDS: MIRTAZAPINE 15 MG TABLET PO SCH (22:29)
[2021-09-07] MEDS: FOLIC ACID 1 MG TABLET PO SCH (22:30)
[2021-09-07] MEDS: OLANZapine 2.5 MG TABLET PO SCH (22:30)
[2021-09-08] MEDS: SODIUM CHLORIDE 0.9% 1,000 ML IV SCH ×3 (01:12→20:16)
[2021-09-08] MEDS: METOCLOPRAMIDE 10 MG/2 ML VIAL IV SCH ×5 (01:13→18:40)
[2021-09-08 05:38] LABS: Basophils % 0.7 % (0.0-0.8); Hematocrit 30.6 VOL% (42.0-52.0); Hemoglobin 10.2 GM/DL (14.0-18.0); Immature Granulocytes Absolute 0.29 #; Lymphocytes # 0.7 10*3/uL (1.4-4.0); Lymphocytes % 15.9 % (21.2-54.2); Mean Corpuscular HGB Conc 33.3 GM/DL (32-36); Mean Corpuscular Volume 101.3 FL (87-102); Mean Platelet Volume 11.9 FL (9.6-12.0); Monocytes % 2.9 % (1.7-12.7); Neutrophils % 73.5 % (38.7-73.9); Red Blood Count 3.02 MC/CUMM (3.8-5.5); Red Cell Distribution Width 14.6 % (9.3-17.3); White Blood Count 4.2 T/CUMM (4-12)
[2021-09-08 05:47] LABS: Calcium 7.9 MG/DL (8.5-10.1); Osmolality,Calculated 277.4 MOS/KG (273-304); Potassium 3.2 MMOL/L (3.5-5.1)
[2021-09-08] MEDS: HYDROCORTISONE 100 MG VIAL IV SCH ×2 (05:56→18:38)
[2021-09-08 06:41] LABS: Platelet Count 30 T/CUMM (130-400)
[2021-09-08 06:51] LABS: Band Neutrophils 1 % (0-10); Hypochromia 1+; Lymphocytes 10 % (20-55); Microcytosis 1+; Platelet Estimate Decreased; Segmented Neutrophils 87 % (50-85); Total Cells Counted 100
[2021-09-08] MEDS ORDERED: SODIUM CHLORIDE 0.9% 1,000 ML IV PRN (09:28)
[2021-09-08] MEDS: TAMSULOSIN 0.4 MG CAPSULE PO SCH ×2 (09:33→21:53)
[2021-09-08] MEDS: CHOLECALCIFEROL 5,000 UNIT TABLET PO SCH (09:34)
[2021-09-08] MEDS: PANTOPRAZOLE 40 MG TABLET PO SCH ×2 (09:34→21:53)
[2021-09-08] MEDS: allopurinoL 300 MG TABLET PO SCH (09:34)
[2021-09-08] MEDS: METOPROLOL SUCCINATE XL 100 MG TABLET PO SCH (09:34)
[2021-09-08] MEDS: cefTRIAXone 1,000 MG in SODIUM CHLORIDE 0.9% 100 ML IV SCH (09:35)
[2021-09-08] MEDS: DESITIN 4OZ/NYSTATIN 15 GRAM MIXTURE PASTE TOP SCH ×2 (09:35→22:01)
[2021-09-08] MEDS ORDERED: POTASSIUM CHLORIDE 20 MEQ TABLET PO ONE (10:19)
[2021-09-08] MEDS: FOLIC ACID 1 MG TABLET PO SCH (21:53)
[2021-09-08] MEDS: MIRTAZAPINE 15 MG TABLET PO SCH (21:53)
[2021-09-08] MEDS: OLANZapine 2.5 MG TABLET PO SCH (21:53)
[2021-09-09] MEDS: METOCLOPRAMIDE 10 MG/2 ML VIAL IV SCH ×4 (01:08→19:11)
[2021-09-09 05:05] LABS: Basophils % 0.5 % (0.0-0.8); Hematocrit 30.2 VOL% (42.0-52.0); Hemoglobin 10.3 GM/DL (14.0-18.0); Immature Granulocytes % 6.7 %; Immature Granulocytes Absolute 0.37 #; Lymphocytes # 0.6 10*3/uL (1.4-4.0); Lymphocytes % 11.6 % (21.2-54.2); Mean Corpuscular HGB Conc 34.1 GM/DL (32-36); Mean Platelet Volume 12.2 FL (9.6-12.0); NRBC # 0.02 10*3/uL; Neutrophils % 77.2 % (38.7-73.9); Red Blood Count 3.05 MC/CUMM (3.8-5.5); Red Cell Distribution Width 14.6 % (9.3-17.3); White Blood Count 5.5 T/CUMM (4-12)
[2021-09-09 05:12] LABS: Platelet Count 30 T/CUMM (130-400)
[2021-09-09 05:25] LABS: Osmolality,Calculated 276.5 MOS/KG (273-304); Potassium 3.2 MMOL/L (3.5-5.1)
[2021-09-09 05:37] LABS: Band Neutrophils 4 % (0-10); Hypochromia Slight; Lymphocytes 7 % (20-55); Platelet Estimate Decreased; Segmented Neutrophils 86 % (50-85); Total Cells Counted 100
[2021-09-09] MEDS: HYDROCORTISONE 100 MG VIAL IV SCH ×2 (07:24→17:26)
[2021-09-09] MEDS: cefTRIAXone 1,000 MG in SODIUM CHLORIDE 0.9% 100 ML IV SCH (10:17)
[2021-09-09] MEDS: DESITIN 4OZ/NYSTATIN 15 GRAM MIXTURE PASTE TOP SCH ×2 (10:17→23:17)
[2021-09-09] MEDS: TAMSULOSIN 0.4 MG CAPSULE PO SCH ×2 (10:17→23:17)
[2021-09-09] MEDS: CHOLECALCIFEROL 5,000 UNIT TABLET PO SCH (10:17)
[2021-09-09] MEDS: PANTOPRAZOLE 40 MG TABLET PO SCH ×2 (10:17→23:17)
[2021-09-09] MEDS: allopurinoL 300 MG TABLET PO SCH (10:17)
[2021-09-09] MEDS: METOPROLOL SUCCINATE XL 100 MG TABLET PO SCH (10:17)
[2021-09-09] MEDS ORDERED: POTASSIUM CHLORIDE 20 MEQ TABLET PO ONE (12:07)
[2021-09-09] MEDS: SODIUM CHLORIDE 0.9% 1,000 ML IV SCH ×2 (14:02→18:19)
[2021-09-09] MEDS: MIRTAZAPINE 15 MG TABLET PO SCH (23:17)
[2021-09-09] MEDS: FOLIC ACID 1 MG TABLET PO SCH (23:17)
[2021-09-10] MEDS: METOCLOPRAMIDE 10 MG/2 ML VIAL IV SCH ×4 (01:13→18:24)
[2021-09-10] MEDS: OLANZapine 2.5 MG TABLET PO SCH (01:19)
[2021-09-10 04:47] LABS: Basophils % 0.4 % (0.0-0.8); Hematocrit 30.1 VOL% (42.0-52.0); Hemoglobin 10.1 GM/DL (14.0-18.0); Immature Granulocytes % 5.8 %; Lymphocytes # 0.8 10*3/uL (1.4-4.0); Lymphocytes % 15.2 % (21.2-54.2); Mean Corpuscular HGB Conc 33.6 GM/DL (32-36); Mean Platelet Volume 12.7 FL (9.6-12.0); Monocytes % 4.5 % (1.7-12.7); Neutrophils % 74.1 % (38.7-73.9); Red Blood Count 3.04 MC/CUMM (3.8-5.5); Red Cell Distribution Width 14.5 % (9.3-17.3); White Blood Count 5.1 T/CUMM (4-12)
[2021-09-10] MEDS: SODIUM CHLORIDE 0.9% 1,000 ML IV SCH (04:50)
[2021-09-10 04:55] LABS: Platelet Count 28 T/CUMM (130-400)
[2021-09-10 05:15] LABS: Calcium 7.6 MG/DL (8.5-10.1); Osmolality,Calculated 285.8 MOS/KG (273-304); Potassium 2.8 MMOL/L (3.5-5.1)
[2021-09-10] MEDS: HYDROCORTISONE 100 MG VIAL IV SCH ×2 (05:34→18:24)
[2021-09-10 05:45] LABS: Band Neutrophils 1 % (0-10); Lymphocytes 10 % (20-55); Nucleated Red Blood Cells 2 (0-5); Segmented Neutrophils 85 % (50-85); Total Cells Counted 100
[2021-09-10 05:46] LABS: Hypochromia Slight; Microcytosis 1+; Platelet Estimate Decreased
[2021-09-10] MEDS: allopurinoL 300 MG TABLET PO SCH (09:29)
[2021-09-10] MEDS: TAMSULOSIN 0.4 MG CAPSULE PO SCH (09:29)
[2021-09-10] MEDS: cefTRIAXone 1,000 MG in SODIUM CHLORIDE 0.9% 100 ML IV SCH (09:30)
[2021-09-10] MEDS: METOPROLOL SUCCINATE XL 100 MG TABLET PO SCH (09:30)
[2021-09-10] MEDS: DESITIN 4OZ/NYSTATIN 15 GRAM MIXTURE PASTE TOP SCH (09:30)
[2021-09-10] MEDS: PANTOPRAZOLE 40 MG TABLET PO SCH (09:30)
[2021-09-10] MEDS: CHOLECALCIFEROL 5,000 UNIT TABLET PO SCH (09:30)
[2021-09-10] MEDS ORDERED: POTASSIUM CHLORIDE 20 MEQ TABLET PO ONE (10:30)
[2021-09-11] MEDS: OLANZapine 2.5 MG TABLET PO SCH ×2 (02:42→22:10)
[2021-09-11] MEDS: PANTOPRAZOLE 40 MG TABLET PO SCH ×3 (02:42→22:10)
[2021-09-11] MEDS: MIRTAZAPINE 15 MG TABLET PO SCH ×2 (02:42→22:10)
[2021-09-11] MEDS: TAMSULOSIN 0.4 MG CAPSULE PO SCH ×3 (02:42→22:10)
[2021-09-11] MEDS: FOLIC ACID 1 MG TABLET PO SCH ×2 (02:42→22:10)
[2021-09-11] MEDS: METOCLOPRAMIDE 10 MG/2 ML VIAL IV SCH ×3 (02:57→14:08)
[2021-09-11] MEDS: DESITIN 4OZ/NYSTATIN 15 GRAM MIXTURE PASTE TOP SCH ×3 (02:57→22:10)
[2021-09-11 05:00] LABS: Basophils # 0.1 10*3/uL (0.0-0.2); Basophils % 0.5 % (0.0-0.8); Hematocrit 33.9 VOL% (42.0-52.0); Hemoglobin 11.3 GM/DL (14.0-18.0); Immature Granulocytes Absolute 0.67 #; Lymphocytes % 7.4 % (21.2-54.2); Mean Corpuscular HGB Conc 33.3 GM/DL (32-36); Mean Corpuscular Volume 100.6 FL (87-102); Mean Platelet Volume 12.3 FL (9.6-12.0); Monocytes % 4.4 % (1.7-12.7); NRBC # 0.08 10*3/uL; Neutrophils % 82.7 % (38.7-73.9); Red Blood Count 3.37 MC/CUMM (3.8-5.5); Red Cell Distribution Width 14.8 % (9.3-17.3)
[2021-09-11 05:08] LABS: Platelet Count 44 T/CUMM (130-400); White Blood Count 13.5 T/CUMM (4-12)
[2021-09-11 05:14] LABS: Calcium 8.4 MG/DL (8.5-10.1); Osmolality,Calculated 283.1 MOS/KG (273-304); Potassium 3.2 MMOL/L (3.5-5.1)
[2021-09-11 05:22] LABS: Hypochromia Slight; Microcytosis Slight; Platelet Estimate Decreased
[2021-09-11] MEDS: METOPROLOL SUCCINATE XL 100 MG TABLET PO SCH (11:35)
[2021-09-11] MEDS: allopurinoL 300 MG TABLET PO SCH (11:36)
[2021-09-11] MEDS: CHOLECALCIFEROL 5,000 UNIT TABLET PO SCH (11:36)
[2021-09-11] MEDS: cefTRIAXone 1,000 MG in SODIUM CHLORIDE 0.9% 100 ML IV SCH (11:36)
[2021-09-11] MEDS: HYDROCORTISONE 100 MG VIAL IV SCH (11:37)
[2021-09-11] MEDS ORDERED: SODIUM CHLORIDE 0.9% 1,000 ML IV PRN (14:20)
[2021-09-11] MEDS ORDERED: FUROSEMIDE 40 MG/4 ML VIAL IV ONE (16:09)
[2021-09-11] MEDS: ALBUTEROL/IPRATROPIUM 3 ML NEB RESP TX SCH (16:12)
[2021-09-11] MEDS: CHOLESTYRAMINE 4 GM PACK PO SCH (23:35)
[2021-09-12] MEDS: ALBUTEROL/IPRATROPIUM 3 ML NEB RESP TX SCH ×7 (00:03→19:16)
[2021-09-12 05:51] LABS: Basophils # 0.1 10*3/uL (0.0-0.2); Basophils % 0.4 % (0.0-0.8); Hematocrit 29.2 VOL% (42.0-52.0); Hemoglobin 10.1 GM/DL (14.0-18.0); Immature Granulocytes % 2.2 %; Immature Granulocytes Absolute 0.29 #; Lymphocytes # 1.1 10*3/uL (1.4-4.0); Lymphocytes % 8.1 % (21.2-54.2); Mean Corpuscular HGB Conc 34.6 GM/DL (32-36); Mean Corpuscular Volume 99.3 FL (87-102); Mean Platelet Volume 12.9 FL (9.6-12.0); Monocytes % 6.3 % (1.7-12.7); NRBC # 0.04 10*3/uL; Platelet Count 44 T/CUMM (130-400); Red Blood Count 2.94 MC/CUMM (3.8-5.5); Red Cell Distribution Width 15.2 % (9.3-17.3)
[2021-09-12 06:01] LABS: Calcium 8.7 MG/DL (8.5-10.1); Osmolality,Calculated 288.8 MOS/KG (273-304)
[2021-09-12 06:02] LABS: Potassium 2.5 MMOL/L (3.5-5.1)
[2021-09-12 06:15] LABS: Band Neutrophils 2 % (0-10); Hypochromia Slight; Lymphocytes 11 % (20-55); Microcytosis Slight; Platelet Estimate Decreased; Segmented Neutrophils 84 % (50-85); Total Cells Counted 100
[2021-09-12] MEDS ORDERED: DIAZEPAM 5 MG TABLET PO ONE (07:41)
[2021-09-12] MEDS: POTASSIUM CHLORIDE RIDER 10 MEQ/100 ML PREMIX IV SCH ×5 (09:27→19:34)
[2021-09-12] MEDS ORDERED: methylPREDNISolone SOD SUC 125 MG/2 ML VIAL IV ONE (09:44)
[2021-09-12] MEDS ORDERED: FUROSEMIDE 40 MG/4 ML VIAL IV ONE ×2 (09:44→14:43)
[2021-09-12] MEDS ORDERED: HYDROCORTISONE 100 MG VIAL IV SCH (10:00)
[2021-09-12 10:19] LABS: Allen Test Positive
[2021-09-12 10:20] LABS: ABG Base Excess -0.6 MMOL/L (-2.5-2.5); ABG HCO3 23.8 MMOL/L (20-26); ABG Oxygen Saturation 89.3 % (95-100); ABG PCO2 30.7 MM HG (35-48); ABG PH 7.471 (7.35-7.45); ABG PO2 51.7 MM HG (80-95); ABG TCO2 20.3 MMOL/L (23-27)
[2021-09-12] MEDS: CEFEPIME 1,000 MG in SODIUM CHLORIDE 0.9% 100 ML IV SCH ×3 (11:00→22:24)
[2021-09-12] MEDS: POTASSIUM BICARB EFFERVESCENT 20 MEQ TAB.EFF PO SCH ×2 (13:58→21:59)
[2021-09-12] MEDS: METOPROLOL SUCCINATE XL 100 MG TABLET PO SCH (13:59)
[2021-09-12] MEDS: DESITIN 4OZ/NYSTATIN 15 GRAM MIXTURE PASTE TOP SCH ×2 (13:59→21:59)
[2021-09-12] MEDS: PANTOPRAZOLE 40 MG TABLET PO SCH ×2 (13:59→21:59)
[2021-09-12] MEDS: allopurinoL 300 MG TABLET PO SCH (13:59)
[2021-09-12] MEDS: CHOLECALCIFEROL 5,000 UNIT TABLET PO SCH (13:59)
[2021-09-12] MEDS: CHOLESTYRAMINE 4 GM PACK PO SCH ×2 (14:00→22:00)
[2021-09-12] MEDS: TAMSULOSIN 0.4 MG CAPSULE PO SCH ×2 (14:02→21:59)
[2021-09-12] MEDS ORDERED: LIDOCAINE 2% TOP JELLY 20 ML VIAL INTRAURETH ONE (15:23)
[2021-09-12 16:12] LABS: ABG Base Excess -2.5 MMOL/L (-2.5-2.5); ABG HCO3 22.2 MMOL/L (20-26); ABG Oxygen Saturation 91.2 % (95-100); ABG PCO2 27.6 MM HG (35-48); Allen Test Positive; Pt O2 Delivery Device Other
[2021-09-12] MEDS: methylPREDNISolone SOD SUC 40 MG/1 ML VIAL IV SCH (16:32)
[2021-09-12] MEDS: FLUCONAZOLE INJ 200 MG/100 ML PREMIX IV SCH (17:00)
[2021-09-12 18:45] LABS: Albumin 2.4 G/DL (3.4-5.0); Bilirubin,Direct 0.43 MG/DL (0.0-0.20); Bilirubin,Indirect 0.8 MG/DL (0.0-1.0); Bilirubin,Total 1.2 MG/DL (0.20-1.00); Total Protein 5.4 G/DL (6.4-8.2)
[2021-09-12] MEDS: FOLIC ACID 1 MG TABLET PO SCH (21:59)
[2021-09-12] MEDS: MIRTAZAPINE 15 MG TABLET PO SCH (21:59)
[2021-09-12] MEDS: OLANZapine 2.5 MG TABLET PO SCH (22:00)
[2021-09-13] MEDS: methylPREDNISolone SOD SUC 40 MG/1 ML VIAL IV SCH ×3 (00:53→17:33)
[2021-09-13] MEDS: CEFEPIME 1,000 MG in SODIUM CHLORIDE 0.9% 100 ML IV SCH ×4 (04:24→22:50)
[2021-09-13] MEDS: ALBUTEROL/IPRATROPIUM 3 ML NEB RESP TX SCH ×4 (07:00→23:40)
[2021-09-13 08:02] LABS: Basophils % 0.2 % (0.0-0.8); Hematocrit 27.5 VOL% (42.0-52.0); Hemoglobin 9.4 GM/DL (14.0-18.0); Immature Granulocytes % 1.3 %; Immature Granulocytes Absolute 0.13 #; Lymphocytes # 0.6 10*3/uL (1.4-4.0); Lymphocytes % 6.4 % (21.2-54.2); Mean Corpuscular HGB Conc 34.2 GM/DL (32-36); Mean Corpuscular Volume 98.6 FL (87-102); Mean Platelet Volume 12.4 FL (9.6-12.0); NRBC # 0.09 10*3/uL; Neutrophils % 89.1 % (38.7-73.9); Red Blood Count 2.79 MC/CUMM (3.8-5.5); Red Cell Distribution Width 15.2 % (9.3-17.3); White Blood Count 9.6 T/CUMM (4-12)
[2021-09-13 08:08] LABS: Platelet Count 33 T/CUMM (130-400)
[2021-09-13 08:14] LABS: INR 1.2; PT Patient Result 13.1 SECS (10.5-12.0); Partial Thromboplastin Time 29.6 SECS (23.8-32.1)
[2021-09-13 08:17] LABS: Calcium 8.6 MG/DL (8.5-10.1); Osmolality,Calculated 292.8 MOS/KG (273-304)
[2021-09-13 08:21] LABS: Band Neutrophils 4 % (0-10); Hypochromia 1+; Lymphocytes 9 % (20-55); Microcytosis Slight; Nucleated Red Blood Cells 1 (0-5); Segmented Neutrophils 84 % (50-85); Total Cells Counted 100
[2021-09-13 08:22] LABS: Platelet Estimate Decreased
[2021-09-13] MEDS: FOLIC ACID INJ 1 MG in SYRINGE 1 EACH IV SCH (11:06)
[2021-09-13] MEDS: CHOLECALCIFEROL 5,000 UNIT TABLET PO SCH (11:09)
[2021-09-13] MEDS: DESITIN 4OZ/NYSTATIN 15 GRAM MIXTURE PASTE TOP SCH ×2 (11:10→22:55)
[2021-09-13] MEDS: TAMSULOSIN 0.4 MG CAPSULE PO SCH (11:10)
[2021-09-13] MEDS: POTASSIUM BICARB EFFERVESCENT 20 MEQ TAB.EFF PO SCH (11:10)
[2021-09-13] MEDS: METOPROLOL SUCCINATE XL 50 MG TABLET PO SCH (11:10)
[2021-09-13] MEDS: PANTOPRAZOLE 40 MG TABLET PO SCH (11:10)
[2021-09-13] MEDS: CHOLESTYRAMINE 4 GM PACK PO SCH (11:15)
[2021-09-13] MEDS: allopurinoL 300 MG TABLET PO SCH (11:15)
[2021-09-13] MEDS: SODIUM CHLORIDE 0.45% 1,000 ML IV SCH (13:45)
[2021-09-13] MEDS: FLUCONAZOLE INJ 200 MG/100 ML PREMIX IV SCH (17:32)
[2021-09-14] MEDS: methylPREDNISolone SOD SUC 40 MG/1 ML VIAL IV SCH ×3 (01:12→15:49)
[2021-09-14] MEDS: TAMSULOSIN 0.4 MG CAPSULE PO SCH ×3 (01:19→21:43)
[2021-09-14] MEDS: POTASSIUM BICARB EFFERVESCENT 20 MEQ TAB.EFF PO SCH ×3 (01:19→21:43)
[2021-09-14] MEDS: PANTOPRAZOLE 40 MG TABLET PO SCH (01:20)
[2021-09-14] MEDS: MIRTAZAPINE 15 MG TABLET PO SCH ×2 (01:20→21:43)
[2021-09-14] MEDS: OLANZapine 2.5 MG TABLET PO SCH ×2 (01:21→21:43)
[2021-09-14] MEDS: CHOLESTYRAMINE 4 GM PACK PO SCH ×3 (01:22→21:43)
[2021-09-14] MEDS: ALBUTEROL/IPRATROPIUM 3 ML NEB RESP TX SCH ×5 (03:35→18:50)
[2021-09-14] MEDS: CEFEPIME 1,000 MG in SODIUM CHLORIDE 0.9% 100 ML IV SCH ×4 (03:57→21:51)
[2021-09-14 06:21] LABS: Basophils % 0.4 % (0.0-0.8); Hematocrit 27.4 VOL% (42.0-52.0); Hemoglobin 9.3 GM/DL (14.0-18.0); Immature Granulocytes Absolute 0.14 #; Lymphocytes # 0.4 10*3/uL (1.4-4.0); Lymphocytes % 5.1 % (21.2-54.2); Mean Corpuscular HGB Conc 33.9 GM/DL (32-36); Mean Corpuscular Volume 99.3 FL (87-102); Mean Platelet Volume 13.3 FL (9.6-12.0); Monocytes % 3.4 % (1.7-12.7); NRBC # 0.14 10*3/uL; Neutrophils % 89.1 % (38.7-73.9); Red Blood Count 2.76 MC/CUMM (3.8-5.5); Red Cell Distribution Width 15.4 % (9.3-17.3); White Blood Count 7.1 T/CUMM (4-12)
[2021-09-14 06:24] LABS: Platelet Count 29 T/CUMM (130-400)
[2021-09-14 06:34] LABS: Calcium 8.6 MG/DL (8.5-10.1); Osmolality,Calculated 301.4 MOS/KG (273-304); Potassium 3.3 MMOL/L (3.5-5.1)
[2021-09-14 06:42] LABS: Band Neutrophils 5 % (0-10); Lymphocytes 2 % (20-55); Nucleated Red Blood Cells 2 (0-5); Platelet Estimate Decreased; Segmented Neutrophils 91 % (50-85); Total Cells Counted 100
[2021-09-14 06:43] LABS: Hypochromia 1+; Microcytosis 1+
[2021-09-14] MEDS ORDERED: MIDAZOLAM 2 MG/2 ML VIAL ONE (08:08)
[2021-09-14] MEDS ORDERED: MIDAZOLAM 2 MG/2 ML VIAL IV ONE (08:16)
[2021-09-14] MEDS: SODIUM CHLORIDE 0.45% 1,000 ML IV SCH (09:59)
[2021-09-14] MEDS: FOLIC ACID INJ 1 MG in SYRINGE 1 EACH IV SCH (10:00)
[2021-09-14] MEDS: FAMOTIDINE 20 MG/2 ML VIAL IV SCH ×2 (10:00→21:51)
[2021-09-14] MEDS: DESITIN 4OZ/NYSTATIN 15 GRAM MIXTURE PASTE TOP SCH ×2 (10:09→21:52)
[2021-09-14] MEDS: METOPROLOL SUCCINATE XL 50 MG TABLET PO SCH (10:09)
[2021-09-14] MEDS: CHOLECALCIFEROL 5,000 UNIT TABLET PO SCH (10:22)
[2021-09-14] MEDS: allopurinoL 300 MG TABLET PO SCH (10:23)
[2021-09-14] MEDS: FLUCONAZOLE INJ 200 MG/100 ML PREMIX IV SCH (16:06)
[2021-09-14 18:35] LABS: CDT Result Negative (Negative); CDT Specimen Source STOOL
[2021-09-15] MEDS: methylPREDNISolone SOD SUC 40 MG/1 ML VIAL IV SCH ×2 (00:06→09:38)
[2021-09-15] MEDS: ALBUTEROL/IPRATROPIUM 3 ML NEB RESP TX SCH ×6 (01:10→23:33)
[2021-09-15 05:01] LABS: Basophils % 0.4 % (0.0-0.8); Hematocrit 26.5 VOL% (42.0-52.0); Hemoglobin 8.7 GM/DL (14.0-18.0); Immature Granulocytes Absolute 0.05 #; Lymphocytes # 0.3 10*3/uL (1.4-4.0); Lymphocytes % 6.2 % (21.2-54.2); Mean Corpuscular HGB Conc 32.8 GM/DL (32-36); Mean Corpuscular Volume 100.8 FL (87-102); Monocytes % 2.1 % (1.7-12.7); NRBC # 0.12 10*3/uL; Neutrophils % 90.3 % (38.7-73.9); Red Blood Count 2.63 MC/CUMM (3.8-5.5); Red Cell Distribution Width 15.6 % (9.3-17.3); White Blood Count 4.8 T/CUMM (4-12)
[2021-09-15 05:14] LABS: Calcium 8.6 MG/DL (8.5-10.1); Osmolality,Calculated 299.7 MOS/KG (273-304); Potassium 3.5 MMOL/L (3.5-5.1)
[2021-09-15 05:22] LABS: Platelet Count 26 T/CUMM (130-400)
[2021-09-15 05:28] LABS: Band Neutrophils 5 % (0-10); Hypochromia 1+; Lymphocytes 4 % (20-55); Microcytosis 1+; Nucleated Red Blood Cells 1 (0-5); Platelet Estimate Decreased; Segmented Neutrophils 91 % (50-85); Total Cells Counted 100
[2021-09-15] MEDS: CEFEPIME 1,000 MG in SODIUM CHLORIDE 0.9% 100 ML IV SCH ×4 (06:01→21:50)
[2021-09-15] MEDS: DESITIN 4OZ/NYSTATIN 15 GRAM MIXTURE PASTE TOP SCH ×2 (08:30→21:40)
[2021-09-15] MEDS: FAMOTIDINE 20 MG/2 ML VIAL IV SCH ×2 (09:39→20:27)
[2021-09-15] MEDS: FOLIC ACID INJ 1 MG in SYRINGE 1 EACH IV SCH (09:39)
[2021-09-15] MEDS: POTASSIUM BICARB EFFERVESCENT 20 MEQ TAB.EFF PO SCH ×2 (11:42→21:40)
[2021-09-15] MEDS: TAMSULOSIN 0.4 MG CAPSULE PO SCH ×2 (11:42→21:39)
[2021-09-15] MEDS: allopurinoL 300 MG TABLET PO SCH (11:44)
[2021-09-15] MEDS: CHOLECALCIFEROL 5,000 UNIT TABLET PO SCH (11:44)
[2021-09-15] MEDS: METOPROLOL SUCCINATE XL 50 MG TABLET PO SCH (11:44)
[2021-09-15] MEDS: SODIUM CHLORIDE 0.45% 1,000 ML IV SCH (11:45)
[2021-09-15] MEDS: CHOLESTYRAMINE 4 GM PACK PO SCH (11:45)
[2021-09-15 12:38] LABS: ABG Base Excess 0.1 MMOL/L (-2.5-2.5); ABG HCO3 24.5 MMOL/L (20-26); ABG Oxygen Saturation 98.9 % (95-100); ABG PCO2 29.1 MM HG (35-48); ABG PH 7.499 (7.35-7.45); ABG TCO2 20.8 MMOL/L (23-27)
[2021-09-15] MEDS: FLUCONAZOLE INJ 200 MG/100 ML PREMIX IV SCH (17:00)
[2021-09-15] MEDS ORDERED: MULTIVITAMIN INJ 10 ML in AMINO ACIDS/DEXT/LYTES 4.25-5% 1,000 ML IV SCH (17:00)
[2021-09-15] MEDS: LACTULOSE 20 GM/30 ML UDCUP PO SCH (21:39)
[2021-09-16] MEDS: SODIUM CHLORIDE 0.45% 1,000 ML IV SCH (02:19)
[2021-09-16] MEDS: ALBUTEROL/IPRATROPIUM 3 ML NEB RESP TX SCH ×5 (03:42→23:34)
[2021-09-16] MEDS: CEFEPIME 1,000 MG in SODIUM CHLORIDE 0.9% 100 ML IV SCH ×4 (03:52→22:17)
[2021-09-16 05:36] LABS: Basophils % 0.2 % (0.0-0.8); Hematocrit 25.1 VOL% (42.0-52.0); Hemoglobin 8.3 GM/DL (14.0-18.0); Immature Granulocytes % 1.6 %; Immature Granulocytes Absolute 0.08 #; Lymphocytes # 0.3 10*3/uL (1.4-4.0); Lymphocytes % 6.6 % (21.2-54.2); Mean Corpuscular HGB Conc 33.1 GM/DL (32-36); Mean Corpuscular Volume 100.8 FL (87-102); Mean Platelet Volume 12.6 FL (9.6-12.0); Monocytes % 2.9 % (1.7-12.7); NRBC # 0.11 10*3/uL; Neutrophils % 88.7 % (38.7-73.9); Red Blood Count 2.49 MC/CUMM (3.8-5.5); Red Cell Distribution Width 15.9 % (9.3-17.3); White Blood Count 5.2 T/CUMM (4-12)
[2021-09-16 05:38] LABS: Platelet Count 28 T/CUMM (130-400)
[2021-09-16 06:01] LABS: Calcium 8.4 MG/DL (8.5-10.1); Potassium 3.6 MMOL/L (3.5-5.1)
[2021-09-16] MEDS: FAMOTIDINE 20 MG/2 ML VIAL IV SCH ×2 (06:13→18:15)
[2021-09-16 08:20] LABS: Band Neutrophils 4 % (0-10); Lymphocytes 8 % (20-55); Nucleated Red Blood Cells 1 (0-5); Polychromasia Slight; Segmented Neutrophils 86 % (50-85); Target Cells Few; Total Cells Counted 100
[2021-09-16 08:21] LABS: Hypochromia 1+; Platelet Estimate Decreased; Reactive Lymphocytes Few; Stomatocytes Few; Tear Drop Cells Slight
[2021-09-16] MEDS: FOLIC ACID INJ 1 MG in SYRINGE 1 EACH IV SCH (09:37)
[2021-09-16] MEDS: LACTULOSE 20 GM/30 ML UDCUP PO SCH ×2 (10:38→21:34)
[2021-09-16] MEDS: DESITIN 4OZ/NYSTATIN 15 GRAM MIXTURE PASTE TOP SCH ×2 (10:39→21:34)
[2021-09-16] MEDS: CHOLECALCIFEROL 5,000 UNIT TABLET PO SCH (10:39)
[2021-09-16] MEDS: METOPROLOL SUCCINATE XL 50 MG TABLET PO SCH (10:39)
[2021-09-16] MEDS: TAMSULOSIN 0.4 MG CAPSULE PO SCH ×2 (10:39→21:34)
[2021-09-16] MEDS: POTASSIUM BICARB EFFERVESCENT 20 MEQ TAB.EFF PO SCH ×2 (10:39→21:34)
[2021-09-16] MEDS: allopurinoL 300 MG TABLET PO SCH (10:39)
[2021-09-16] MEDS ORDERED: SODIUM PHOSPHATE ENEMA 133 ML BOTTLE RECTAL ONE (14:56)
[2021-09-16] MEDS: FLUCONAZOLE INJ 200 MG/100 ML PREMIX IV SCH (16:26)
[2021-09-16] MEDS: MULTIVITAMIN INJ 10 ML in AMINO ACIDS/DEXT/LYTES 4.25-5% 2,000 ML IV SCH (18:16)
[2021-09-17] MEDS: ALBUTEROL/IPRATROPIUM 3 ML NEB RESP TX SCH ×6 (03:34→23:17)
[2021-09-17] MEDS: CEFEPIME 1,000 MG in SODIUM CHLORIDE 0.9% 100 ML IV SCH ×4 (03:49→21:13)
[2021-09-17] MEDS: FAMOTIDINE 20 MG/2 ML VIAL IV SCH ×2 (06:19→21:21)
[2021-09-17 07:14] LABS: Basophils % 0.2 % (0.0-0.8); Hematocrit 25.2 VOL% (42.0-52.0); Hemoglobin 8.2 GM/DL (14.0-18.0); Immature Granulocytes % 5.8 %; Immature Granulocytes Absolute 0.35 #; Lymphocytes # 0.5 10*3/uL (1.4-4.0); Lymphocytes % 7.7 % (21.2-54.2); Mean Corpuscular HGB Conc 32.5 GM/DL (32-36); Mean Corpuscular Volume 103.7 FL (87-102); Mean Platelet Volume 13.4 FL (9.6-12.0); Monocytes % 6.7 % (1.7-12.7); NRBC # 0.17 10*3/uL; Neutrophils % 79.6 % (38.7-73.9); Red Blood Count 2.43 MC/CUMM (3.8-5.5); Red Cell Distribution Width 16.2 % (9.3-17.3)
[2021-09-17 07:18] LABS: Platelet Count 30 T/CUMM (130-400)
[2021-09-17 07:26] LABS: Calcium 8.7 MG/DL (8.5-10.1); Osmolality,Calculated 312.6 MOS/KG (273-304); Potassium 3.9 MMOL/L (3.5-5.1)
[2021-09-17 07:29] LABS: Albumin 1.6 G/DL (3.4-5.0); Bilirubin,Direct 0.3 MG/DL (0.0-0.20); Bilirubin,Indirect 2.1 MG/DL (0.0-1.0); Bilirubin,Total 2.4 MG/DL (0.20-1.00); Total Protein 4.3 G/DL (6.4-8.2)
[2021-09-17 09:01] LABS: Band Neutrophils 1 % (0-10); Lymphocytes 4 % (20-55); Nucleated Red Blood Cells 7 (0-5); Polychromasia Slight; Promyelocytes 1 %; Segmented Neutrophils 88 % (50-85); Tear Drop Cells Few; Total Cells Counted 100
[2021-09-17 09:02] LABS: Anisocytosis 2+; Platelet Estimate Decreased; Target Cells Slight
[2021-09-17] MEDS: DESITIN 4OZ/NYSTATIN 15 GRAM MIXTURE PASTE TOP SCH ×2 (09:06→21:13)
[2021-09-17] MEDS ORDERED: SALIVA SUBSTITUTE SPRAY 60 ML CAN SWISH/SPIT PRN (09:38)
[2021-09-17] MEDS: LACTATED RINGERS 1,000 ML IV SCH (10:22)
[2021-09-17] MEDS: POTASSIUM BICARB EFFERVESCENT 20 MEQ TAB.EFF PO SCH ×2 (11:52→21:13)
[2021-09-17] MEDS: LACTULOSE 20 GM/30 ML UDCUP PO SCH ×4 (11:52→21:13)
[2021-09-17] MEDS: TAMSULOSIN 0.4 MG CAPSULE PO SCH (11:52)
[2021-09-17] MEDS: METOPROLOL SUCCINATE XL 50 MG TABLET PO SCH (11:52)
[2021-09-17] MEDS: allopurinoL 300 MG TABLET PO SCH (14:10)
[2021-09-17] MEDS: CHOLECALCIFEROL 5,000 UNIT TABLET PO SCH (14:10)
[2021-09-17] MEDS: FOLIC ACID INJ 1 MG in SYRINGE 1 EACH IV SCH (14:11)
[2021-09-17] MEDS: FLUCONAZOLE INJ 100 MG/50 ML PREMIX IV SCH (17:33)
[2021-09-17] MEDS: MULTIVITAMIN INJ 10 ML in AMINO ACIDS/DEXT/LYTES 4.25-5% 2,000 ML IV SCH (17:33)
[2021-09-18] MEDS: LACTATED RINGERS 1,000 ML IV SCH ×2 (02:28→22:45)
[2021-09-18] MEDS: ALBUTEROL/IPRATROPIUM 3 ML NEB RESP TX SCH ×5 (02:51→19:15)
[2021-09-18] MEDS: CEFEPIME 1,000 MG in SODIUM CHLORIDE 0.9% 100 ML IV SCH ×4 (04:28→22:46)
[2021-09-18] MEDS: LACTULOSE 20 GM/30 ML UDCUP PO SCH ×3 (05:34→22:25)
[2021-09-18 06:34] LABS: Osmolality,Calculated 305.1 MOS/KG (273-304); Potassium 4.4 MMOL/L (3.5-5.1)
[2021-09-18] MEDS ORDERED: LORazepam 2 MG/1 ML VIAL IV PRN (09:46)
[2021-09-18] MEDS: FAMOTIDINE 20 MG/2 ML VIAL IV SCH ×2 (10:00→22:46)
[2021-09-18] MEDS: DESITIN 4OZ/NYSTATIN 15 GRAM MIXTURE PASTE TOP SCH ×2 (10:00→22:26)
[2021-09-18] MEDS: allopurinoL 300 MG TABLET PO SCH (10:07)
[2021-09-18] MEDS: CHOLECALCIFEROL 5,000 UNIT TABLET PO SCH (10:07)
[2021-09-18] MEDS: METOPROLOL SUCCINATE XL 50 MG TABLET PO SCH (10:47)
[2021-09-18] MEDS: POTASSIUM BICARB EFFERVESCENT 20 MEQ TAB.EFF PO SCH ×2 (10:47→22:24)
[2021-09-18] MEDS: FOLIC ACID INJ 1 MG in SYRINGE 1 EACH IV SCH (12:20)
[2021-09-18] MEDS ORDERED: ALBUMIN 25% 50 GM/200 ML VIAL IV ONE (14:43)
[2021-09-18] MEDS ORDERED: ELECTROLYTE IV SCH (17:00)
[2021-09-18] MEDS ORDERED: [UNRECOGNIZED DRUG - OTHER] IV SCH (17:00)
[2021-09-18] MEDS ORDERED: MULTIVITAMIN IV SCH (17:00)
[2021-09-18] MEDS ORDERED: ACETAMINOPHEN 650 MG SUPP RECTAL ONE (17:17)
[2021-09-18] MEDS: FLUCONAZOLE INJ 100 MG/50 ML PREMIX IV SCH (18:58)
[2021-09-18] MEDS: MORPHINE 2 MG/1 ML SYRINGE IV PRN (19:33)
[2021-09-19] MEDS: ALBUTEROL/IPRATROPIUM 3 ML NEB RESP TX SCH ×7 (00:25→21:09)
[2021-09-19] MEDS: CEFEPIME 1,000 MG in SODIUM CHLORIDE 0.9% 100 ML IV SCH ×3 (05:17→16:17)
[2021-09-19] MEDS: LACTULOSE 20 GM/30 ML UDCUP PO SCH (05:18)
[2021-09-19] MEDS: MORPHINE 2 MG/1 ML SYRINGE IV PRN (10:16)
[2021-09-19] MEDS: FOLIC ACID INJ 1 MG in SYRINGE 1 EACH IV SCH (10:17)
[2021-09-19] MEDS: FAMOTIDINE 20 MG/2 ML VIAL IV SCH ×2 (10:40→21:43)
[2021-09-19] MEDS: CHOLECALCIFEROL 5,000 UNIT TABLET PO SCH (11:10)
[2021-09-19] MEDS: METOPROLOL SUCCINATE XL 50 MG TABLET PO SCH (11:10)
[2021-09-19] MEDS: DESITIN 4OZ/NYSTATIN 15 GRAM MIXTURE PASTE TOP SCH ×2 (11:10→21:44)
[2021-09-19] MEDS: FLUCONAZOLE INJ 100 MG/50 ML PREMIX IV SCH (17:33)
[2021-09-19] MEDS: LACTATED RINGERS 1,000 ML IV SCH ×2 (17:34→19:19)
[2021-09-20] MEDS: ALBUTEROL/IPRATROPIUM 3 ML NEB RESP TX SCH ×2 (02:02→06:41)
[2021-09-20] MEDS: FAMOTIDINE 20 MG/2 ML VIAL IV SCH (08:34)
[2021-09-20] MEDS: LORazepam 2 MG/1 ML VIAL IV PRN ×3 (08:37→14:35)
[2021-09-20 09:43] VITALS: BP 97/68
[2021-09-20] MEDS: MORPHINE 2 MG/1 ML SYRINGE IV PRN ×3 (09:51→15:55)
[2021-09-20] MEDS: METOPROLOL SUCCINATE XL 50 MG TABLET PO SCH (09:54)
[2021-09-20] MEDS: CHOLECALCIFEROL 5,000 UNIT TABLET PO SCH (09:54)
[2021-09-20] MEDS: FOLIC ACID INJ 1 MG in SYRINGE 1 EACH IV SCH (09:55)
[2021-09-20] MEDS: LACTATED RINGERS 1,000 ML IV SCH (10:32)
[2021-09-20] MEDS: DESITIN 4OZ/NYSTATIN 15 GRAM MIXTURE PASTE TOP SCH (10:32)
== END 2021-09-20 16:54 | disposition expired | DRG 640 ==
LOC: SUATTDRO → N.ED 10:43 → SUATTDRO 15:10 → N.EDINP 15:10 → N.TELEN 19:07
PROVIDERS: ADMIT Internal Medicine; ATTEND Internal Medicine Geriatric Medicine